=== PATIENT | male | born 1985 | race Caucasian/White ===

== ENCOUNTER → 2018-09-20 | Outpatient (REF) ==
[~2018-09-20] MED LIST: CIPRO 500MG TA500 MG PO; LORTAB 2.5/5001 TAB PO; NO HOME MEDICATIONS; NORCO 325 MG-7.1 TAB PO; PERCOCET 500 MG1 TAB PO; PHENERGAN 25 TA25 MG PO; PHENERGAN25 MG RC; ZANTAC 150MG T150 MG PO
== END ==
LOC: ZLAB.WCH 08:29
DX: Z01.89 Encounter for other specified special examinations (principal)

== ENCOUNTER 2023-11-12 17:00 | Emergency (ER) | payer BC ==
[~2023-11-12] VITALS: Ht 172.7 cm; Wt 86.4 kg
[2023-11-12 17:08] VITALS: TEMP 98.5
[2023-11-12] MEDS ORDERED: AMOXICILLIN 8751 TAB PO (17:49)
[2023-11-12 18:50] VITALS: BP 176/119; PULSE 84
== END 2023-11-12 18:51 | disposition home or self-care (01) ==
LOC: COL.ER 17:00
DX: J32.9 Chronic sinusitis, unspecified (principal); F17.210 Nicotine dependence, cigarettes, uncomplicated